=== PATIENT | female | born 1985 | race Caucasian/White ===

== ENCOUNTER 2024-03-23 07:06 | Day surgery (SDC) | payer MEDICAID ==
[~2024-03-23] VITALS: Ht 170.2 cm; Wt 61.4 kg
[~2024-03-23 07:06] MED LIST: CARI1.5C PO; CYCL-1 PO; DOCU100C59 PO; GABA-530 PO; LORA2TAB96 PO; NAPR-996 PO; NORE-33 PO; ONDA-245; SENN8.6C6 PO; TRAZ-251 PO
[2024-03-23 07:33] VITALS: BP 110/59; PULSE 45; RESP 18
[2024-03-23] MEDS ORDERED: MIDAZolam 1 MG/ML 5ML VIAL ONE (07:59)
[2024-03-23] MEDS ORDERED: fentaNYL/PF 50MCG/1 ML 2ML syringe ONE (07:59)
[2024-03-23] MEDS ORDERED: LIDOcaine 2% Viscous 15ml cup ONE (07:59)
[2024-03-23 08:26] VITALS: BP 111/78; PULSE 61; RESP 14; O2SAT 96
[2024-03-23 08:35] VITALS: BP 107/77; PULSE 59; RESP 14; O2SAT 96
[2024-03-23 08:45] VITALS: BP 115/70; PULSE 54; RESP 14; O2SAT 95
[2024-03-23 08:55] VITALS: BP 117/74; PULSE 58; RESP 17; O2SAT 99
[2024-03-23] MEDS ORDERED: simethicone 40mg/0.6ml oral drops 30ml ONE (09:00)
== END 2024-03-23 09:00 | disposition home or self-care (01) ==
LOC: GI LAB 07:06
PROVIDERS: ATTEND Surgery
DX: R11.2 Nausea with vomiting, unspecified (principal); K29.50 Unspecified chronic gastritis without bleeding; K44.9 Diaphragmatic hernia without obstruction or gangrene; E11.9 Type 2 diabetes mellitus without complications; F41.9 Anxiety disorder, unspecified; F32.A Depression, unspecified; G62.9 Polyneuropathy, unspecified; F12.90 Cannabis use, unspecified, uncomplicated; Z79.899 Other long term (current) drug therapy; Z98.818 Other dental procedure status; Z98.890 Other specified postprocedural states; Z80.8 Family history of malignant neoplasm of other organs or systems; Z80.1 Family history of malignant neoplasm of trachea, bronchus and lung; Z82.49 Family history of ischemic heart disease and other diseases of the circulatory system
CPT/HCPCS: 43239; 99152; J2250; J3010; J7030; Z7512; A4620